=== PATIENT | female | born 1965 | race Caucasian/White ===

== ENCOUNTER 2021-05-02 19:27 | Inpatient (IN) | payer MEDICAID, SELFPAY ==
[~2021-05-02] VITALS: Ht 154.9 cm; Wt 95.3 kg
[2021-05-02 19:34] VITALS: BP_SYST 183
--- NOTE | 2021-05-02 19:37 | NUR ---
Placed in room 03 . Placed on monitoring engineer, blood pressure machine and pulse oximeter. To gown for exam. Side rails up.
--- NOTE | 2021-05-02 19:42 | NUR ---
ER Dr. Cali at bedside examining patient.
[2021-05-02] MEDS ORDERED: cloNIDine HCL 0.1 MG TABLET PO ONE (20:00)
--- NOTE | 2021-05-02 20:05 | NUR ---
Patient BIB by family from home. C/O Hypertension x today. Patient reported, nausea, vomitting and headache and hypertension today. A/O, X4, headache, pain rate 6/10, BP 181/85, place patient on curtain stretcher and pulse ox.
[2021-05-02] MEDS ORDERED: cloNIDine HCL 0.1 MG TABLET ONE (20:28)
--- NOTE | 2021-05-02 21:08 | NUR ---
Assumed care of patient at change of shift. Introduced self to patient, positioned for comfort and safety w/ bed to low position sr up, continue to monitor. Patient resting quietly. No acute distress noted. Vital signs within normal range.
[2021-05-02] MEDS ORDERED: IBUPROFEN 800 MG TABLET PO ONE (21:45)
--- NOTE | 2021-05-02 21:58 | NUR ---
Blood for labwork drawn from [facility] by [facility]. Patient tolerated procedure.
[2021-05-02 22:43] LABS: BASOPHILS # (AUTO) 0.1 K/uL (0.0-0.2); BASOPHILS % (AUTO) 0.5 % (0.0-2.0); EOSINOPHILS % (AUTO) 0.2 % (0.0-4.0); HEMATOCRIT 44.1 % (36-48); HEMOGLOBIN 15.2 g/dL (12.0-16.0); LYMPHOCYTES # (AUTO) 1.5 K/uL (1.0-5.5); LYMPHOCYTES % (AUTO) 9.1 % (20.5-51.5); MEAN CORPUSCULAR HEMOGLOBIN 30 pg (27-31); MEAN CORPUSCULAR HGB CONC 35 % (32-36); MEAN CORPUSCULAR VOLUME 86 fL (79.0-98.0); MONOCYTES # (AUTO) 1.1 K/uL (0.0-1.0); MONOCYTES % (AUTO) 6.3 % (1.7-9.3); NEUTROPHILS # (AUTO) 14.2 K/uL (1.8-7.7); NEUTROPHILS % (AUTO) 83.9 % (40.0-70.0); PLATELET COUNT (AUTO) 341 K/uL (130-430); RED BLOOD CELL COUNT(AUTO) 5.11 MIL/uL (4.2-6.2); RED CELL DISTRIBUTION WIDTH 13.5 % (9.0-15.0); WHITE BLOOD COUNT (AUTO) 16.9 K/uL (4.8-10.8)
[2021-05-02 23:01] LABS: CALCIUM 9.8 mg/dL (8.4-11.0); CREATININE 0.73 mg/dL (0.55-1.30); POTASSIUM 4.3 mmol/L (3.5-5.1)
[2021-05-02 23:06] LABS: ALBUMIN 3.8 g/dL (3.4-4.8); TOTAL BILIRUBIN 0.5 mg/dL (0.0-1.0)
--- NOTE | 2021-05-02 23:20 | NUR ---
Patient resting quietly. No acute distress noted. Vital signs within normal range.
--- NOTE | 2021-05-03 01:32 | NUR ---
# 20 gauge angiocath placed to LAC. Use of asceptic technique. Opsite placed over site. Blood return noted. Flushed with 10 cc of normal saline. No evidence of infiltration noted. Patient tolerated well. Patient resting quietly. No acute distress noted. Vital signs within normal range. bed to low position sr up, continue to monitor.
[2021-05-03] MEDS ORDERED: NITROGLYCERIN 0.4 MG TAB.SUBL SL PRN (02:30)
--- NOTE | 2021-05-03 03:30 | NUR ---
Patient resting quietly. No acute distress noted. Vital signs within normal range.
[2021-05-03] MEDS ORDERED: HYDROcodone/ACETAMIN 5-325 MG TAB (NORCO/ VICODIN) PO ONE (06:15)
[2021-05-03] MEDS ORDERED: HYDROcodone/ACETAMIN 5-325 MG TAB (NORCO/ VICODIN) ONE (06:18)
--- NOTE | 2021-05-03 06:19 | NUR ---
medicated patient as ordered for back pain. will observe for any adverse reaction. bed to low position sr up, continue to monitor.
[2021-05-03] MEDS ORDERED: HYDR25TA4 PO (06:21)
[2021-05-03] MEDS ORDERED: HYDR-4039 PO (06:22)
[2021-05-03] MEDS ORDERED: NEBI20TA2 PO (06:22)
--- NOTE | 2021-05-03 07:26 | NUR ---
RECEIVED AND IN ROOM, PT CALM, ALERT, RESP UNLABORED, COMMUNICATES CLEARLY IN FULL COMPLETE SENTECES. DENIES CP/SOB. SR ON MONITOR NO ECTOPY
[2021-05-03] MEDS: ASPIRIN 81 MG TAB.CHEW PO SCH ×2 (09:00→09:11)
--- NOTE | 2021-05-03 09:05 | NUR ---
calm, alert, resp unlabored, skin warm and dry. communicates clearly in full complete senteces
[2021-05-03] MEDS: ENOXAPARIN SODIUM 40 MG/0.4 ML SYRINGE SUBCUT SCH (09:11)
--- NOTE | 2021-05-03 09:13 | NUR ---
DR RUSH IN TO ASSESS
[2021-05-03] MEDS ORDERED: HYDROCHLOROTHIAZIDE 25 MG TABLET (HCTZ) PO SCH (09:30)
[2021-05-03] MEDS ORDERED: hydrALAZINE HCL 25 MG TABLET PO SCH ×2 (09:30→22:00)
[2021-05-03] MEDS ORDERED: NALOXONE HCL 0.4 MG/ML AMP (NARCAN) IVP PRN ×2 (09:30→13:30)
--- NOTE | 2021-05-03 09:38 | NUR ---
ECHO IN PROGRESS, PT CALM, ALERT, NO DISTRESS
--- NOTE | 2021-05-03 09:41 | NUR ---
Patient will be admitted to care [facility]. Admitted to TELE unit. Will go to room 109. Belongings list completed. Complete and up to date summary report printed. SBAR report to be given at bedside with opportunity for questions.
--- NOTE | 2021-05-03 10:25 | NUR ---
ADMISSION NOTE Received patient from ER via [facility], received report from RAJI MARIE. Patient admitted with diagnosis of CHEST PAIN . Patient oriented to hospital routine, call light, toileting and safety-patient verbalized understanding.
[2021-05-03] MEDS: MORPHINE 2 MG/ML INJ. SYRINGE IVP PRN (10:49)
[2021-05-03 10:50] VITALS: BP_SYST 166
[2021-05-03 11:47] VITALS: BP_SYST 149
[2021-05-03] MEDS ORDERED: HYDR2TAB4 PO (11:52)
[2021-05-03] MEDS ORDERED: OXYC10TA56 PO (11:52)
[2021-05-03] MEDS ORDERED: TRAZ-251 PO (11:52)
--- NOTE | 2021-05-03 12:08 | NUR ---
Paged Dr Mandie Zhou for chronic cervical pain
[2021-05-03] MEDS ORDERED: traZODone HCL 50 MG TABLET (DESYREL) PO PRN (13:30)
[2021-05-03] MEDS ORDERED: LOSARTAN POTASSIUM 50 MG TABLET (COZAAR) PO ONE (13:30)
[2021-05-03] MEDS ORDERED: HYDROCHLOROTHIAZIDE 25 MG TABLET (HCTZ) PO ONE (13:30)
--- NOTE | 2021-05-03 13:36 | NUR ---
HIGH ALERT NOTE: Called Dr. Zhou back at pager no. [phone] identified within the medical roster to verify physician authenticityfor 1 dose of dilaudid.
[2021-05-03] MEDS ORDERED: HYDROmorphone 1 MG/ML INJ. CARTRIDGE IVP ONE (13:45)
[2021-05-03] MEDS: oxyCODONE HCL 10 MG TAB.ER.12H PO SCH ×2 (15:11→22:23)
[2021-05-03] MEDS: hydrALAZINE HCL 25 MG TABLET PO SCH ×2 (15:11→21:00)
[2021-05-03 15:12] VITALS: BP_SYST 130
[2021-05-03 19:45] VITALS: BP_SYST 115
[2021-05-03] MEDS: LOSARTAN POTASSIUM 50 MG TABLET (COZAAR) PO SCH (21:00)
[2021-05-03] MEDS ORDERED: HYDROmorphone 2 MG TAB PO SCH (21:00)
[2021-05-04] MEDS ORDERED: SUMAtriptan SUCCINATE 50 MG TABLET PO PRN
[2021-05-04 02:02] VITALS: BP_SYST 113
--- NOTE | 2021-05-04 06:40 | NUR ---
CLOSING NOTE PATIENT SLEPT WELL THROUGHOUT THE SHIFT, ON ROOM AIR. SHE STATED THAT PRN MEDICATION GIVEN TO HER FOR PAIN WAS EFFECTIVE. PATIENT STATED NO CHEST PAIN. AT THIS TIME, SHE IS RESTING IN BED, STABLE, NO SIGNS OF RESPIRATORY DISTRESS. CALL LIGHT PLACED WITHIN REACH. BED IS LOCKED, ALARMED, AND AT THE LOWEST LEVEL. FALL, SAFETY, RESPIRATORY, AND ASPIRATION PRECAUTIONS HAVE BEEN TAKEN THROUGHOUT THE SHIFT. WILL CONTINUE TO MONITOR UNTIL SHIFT REPORT IS GIVEN AT BEDSIDE TO AM SHIFT.
[2021-05-04 06:42] LABS: BASOPHILS # (AUTO) 0.1 K/uL (0.0-0.2); BASOPHILS % (AUTO) 1.1 % (0.0-2.0); EOSINOPHILS # (AUTO) 0.2 K/uL (0.0-0.4); EOSINOPHILS % (AUTO) 3.1 % (0.0-4.0); HEMOGLOBIN 16.2 g/dL (12.0-16.0); LYMPHOCYTES # (AUTO) 3.6 K/uL (1.0-5.5); MEAN CORPUSCULAR HEMOGLOBIN 30 pg (27-31); MEAN CORPUSCULAR HGB CONC 34 % (32-36); MEAN CORPUSCULAR VOLUME 87 fL (79.0-98.0); MONOCYTES # (AUTO) 0.6 K/uL (0.0-1.0); MONOCYTES % (AUTO) 8.4 % (1.7-9.3); NEUTROPHILS # (AUTO) 2.6 K/uL (1.8-7.7); NEUTROPHILS % (AUTO) 36.4 % (40.0-70.0); PLATELET COUNT (AUTO) 328 K/uL (130-430); RED CELL DISTRIBUTION WIDTH 13.2 % (9.0-15.0)
[2021-05-04 07:00] VITALS: BP_SYST 130
[2021-05-04 08:00] VITALS: BP_SYST 130
--- NOTE | 2021-05-04 08:00 | NUR ---
NURSE REPORT REPORT OBTAINED FROM NIGHT NURSE VIJI AND THIS NURSE ASSUMED CARE OF PATIENT.RECEIVED PATIENT AWAKE AND WITHOUT ANY PAIN. VSS. AFEB.
[2021-05-04 08:03] LABS: ALBUMIN 3.6 g/dL (3.4-4.8); CALCIUM 9.6 mg/dL (8.4-11.0); CREATININE 0.81 mg/dL (0.55-1.30); POTASSIUM 3.8 mmol/L (3.5-5.1); THYROID STIMULATING HORMONE 8.72 uIu/mL (0.34-4.82); TOTAL BILIRUBIN 0.5 mg/dL (0.0-1.0)
[2021-05-04] MEDS ORDERED: HYDROCHLOROTHIAZIDE 25 MG TABLET (HCTZ) PO SCH ×2 (09:00)
[2021-05-04] MEDS ORDERED: METOPROLOL SUCCINATE 50 MG TAB.SR.24H (TOPROL XL) PO SCH (09:00)
[2021-05-04] MEDS: hydrALAZINE HCL 25 MG TABLET PO SCH ×2 (09:41→15:47)
[2021-05-04] MEDS: LOSARTAN POTASSIUM 50 MG TABLET (COZAAR) PO SCH (09:41)
[2021-05-04] MEDS: ENOXAPARIN SODIUM 40 MG/0.4 ML SYRINGE SUBCUT SCH (09:48)
[2021-05-04] MEDS: oxyCODONE HCL 10 MG TAB.ER.12H PO SCH ×2 (10:01→15:45)
[2021-05-04] MEDS ORDERED: ATORVASTATIN 20 MG TABLET PO SCH (11:00)
[2021-05-04] MEDS: MORPHINE 2 MG/ML INJ. SYRINGE IVP PRN (11:43)
--- NOTE | 2021-05-04 11:43 | NUR ---
NURSE CARE MEDICIATED FOR PAIN WITH MORPHINE 1 MG IVP. ON OXYCONTIN 30 MG TID. UP AND TOOK SHOWER. ABLE TO AMBULATE WITH USE OF WALKER. SL SITE COVERED WITH PLASTIC AND TAPE.
[2021-05-04 12:00] VITALS: BP_SYST 135
[2021-05-04 16:00] VITALS: BP_SYST 141
[2021-05-04 16:52] VITALS: BP_SYST 141
--- NOTE | 2021-05-04 18:00 | NUR ---
NURSE CARE VSS. AFEB. NO C/O PAIN OR DISCOMFORT.
--- NOTE | 2021-05-04 18:00 | NUR ---
DISCHARGE NOTES D/C INSTRUCTIONS GIVEN TO PATIENT WITH UNDERSTANDINGS OF INSTRUCTIONS. SL REMOVED. DC'D VIA W/C TO CAREGIVER CAR.
[2021-05-05] MEDS ORDERED: ATORVASTATIN 20 MG TABLET PO SCH (09:00)
== END 2021-05-04 18:03 | disposition home or self-care (01) | DRG 203 ==
LOC: SED 19:27 → STU 05-03 02:28
PROVIDERS: ADMIT Family Medicine; ATTEND Family Medicine
DX: M94.0 Chondrocostal junction syndrome [Tietze] (principal); D72.829 Elevated white blood cell count, unspecified; G25.81 Restless legs syndrome; I10 Essential (primary) hypertension; M50.30 Other cervical disc degeneration, unspecified cervical region; G89.4 Chronic pain syndrome; M54.9 Dorsalgia, unspecified; Z79.899 Other long term (current) drug therapy; Z98.1 Arthrodesis status; Z98.891 History of uterine scar from previous surgery
CPT/HCPCS: 36415; 71045; 72125-TC; 76376; 80053; 80061; 82550; 83690; 83880; 84443; 84484; 85025; 93005; 93306; 99285; G0378; J1170; J1650; J2270

== ENCOUNTER 2023-05-08 19:25 | Emergency (ER) | payer MEDICAID ==
[~2023-05-08] VITALS: Ht 154.9 cm; Wt 93.9 kg
[~2023-05-08 19:25] MED LIST: HYDR-4039 PO; HYDR25TA4 PO; HYDR2TAB4 PO; NEBI20TA2 PO; OXYC10TA56 PO; TRAZ-251 PO
[2023-05-08 19:59] VITALS: BP_SYST 208; PULSE 68; RESP 17; TEMP 97.4; O2SAT 98
[2023-05-08] MEDS ORDERED: cloNIDine HCL 0.1 MG TABLET PO ONE (21:45)
[2023-05-08] MEDS ORDERED: traMADol HCL HCL 50 MG TABLET (ULTRAM) PO ONE (23:15)
[2023-05-08] MEDS ORDERED: KETOROLAC TROMETHAMINE 60 MG/2 ML VIAL IM ONE (23:15)
[2023-05-08] MEDS ORDERED: TRAM50TA2 PO (23:35)
[2023-05-08] MEDS ORDERED: IBUP-1969 PO (23:35)
[2023-05-09 00:02] VITALS: BP_SYST 165; PULSE 58; RESP 18; O2SAT 97
== END 2023-05-09 00:02 | disposition home or self-care (01) ==
LOC: SED 19:25
DX: S16.1XXA Strain of muscle, fascia and tendon at neck level, initial encounter (principal); S09.90XA Unspecified injury of head, initial encounter; I10 Essential (primary) hypertension; Z88.5 Allergy status to narcotic agent; Z88.6 Allergy status to analgesic agent; Z88.8 Allergy status to other drugs, medicaments and biological substances; Z79.899 Other long term (current) drug therapy; Y04.0XXA Assault by unarmed brawl or fight, initial encounter; Y93.89 Activity, other specified; Y92.89 Other specified places as the place of occurrence of the external cause; Y99.8 Other external cause status
CPT/HCPCS: 99285; 70450; 72125; 76376; 96372; J1885